=== PATIENT | male | born 1965 | race Hispanic/Latino ===

== ENCOUNTER → 2025-02-05 | Outpatient (CLI) | payer OTHER | LOC: PET 08:00 | PROVIDERS: ATTEND Internal Medicine Hematology & Oncology | DX: C16.0 Malignant neoplasm of cardia (principal); D50.0 Iron deficiency anemia secondary to blood loss (chronic); C77.9 Secondary and unspecified malignant neoplasm of lymph node, unspecified | CPT/HCPCS: 78815; A9552 ==

== ENCOUNTER 2025-02-06 08:41 | Day surgery (SDC) | payer SELFPAY ==
[2025-02-06] MEDS ORDERED: Acetaminophen 500 MG TAB ONE (09:28)
[2025-02-06] MEDS ORDERED: diphenhydrAMINE 25 MG CAP ONE (09:28)
[2025-02-06] MEDS: Acetaminophen 500 MG TAB PO SCH (09:33)
[2025-02-06] MEDS: diphenhydrAMINE 25 MG CAP PO SCH (09:33)
[2025-02-06 12:27] VITALS: BP 144/72; TEMP 98.1
== END 2025-02-06 12:24 | disposition home or self-care (01) ==
LOC: ONC/OP 08:41
PROVIDERS: ATTEND Internal Medicine Hematology & Oncology
DX: D64.9 Anemia, unspecified (principal); D69.6 Thrombocytopenia, unspecified
CPT/HCPCS: 36430; 86850; 86900; 86901; P9016